=== PATIENT | female | born 1960 | race Caucasian/White ===

== ENCOUNTER 2018-12-01 06:16 | Day surgery (SDC) | payer OTHER ==
[~2018-12-01 06:16] MED LIST: GABAPENTIN600 MG PO; OCUVITE EYE HE1 EACH PO; VIBATIV750 MG PO; ZOLOFT PO
== END 2018-12-01 15:00 | disposition home or self-care (01) ==
LOC: CIR.AMB 06:16
DX: S52.531A Colles' fracture of right radius, initial encounter for closed fracture (principal)
CPT/HCPCS: 25609; 25280; 25118; C1776